=== PATIENT | female | born 1940 | race Hispanic/Latino ===

== ENCOUNTER 2016-06-25 07:22 | Emergency (ER) | payer MEDICARE, BC ==
[2016-06-25 07:24] VITALS: BMI 30.9
[2016-06-25 07:36] VITALS: TEMP 98.7
--- NOTE | 2016-06-25 07:47 | ED PDOC ---
Arrival/HPI - General Chief Complaint: Respiratory Distress Time Seen by Provider: 06/25/16 07:36 Historian: Patient - History of Present Illness Narrative History of Present Illness (Text): 06/25/16 07:47 A 75 year old female, whose past medical history includes hypertension, asthma and restrictive lung disease, was sent into the emergency department by rate quoting operator for asthma exacerbation. Patient reports wheezing and dry cough for the past 2 days. She was seen by Dr. Zuñiga and was prescribed steroids. Patient has been compliant with medication, with no relief. Patient denies any fever, chills, body aches, nausea, vomiting, diarrhea, abdominal pain, urinary symptoms, chest pain or tightness, shortness of breath, sore throat, nasal congestion, rash or any other complaints. Patient denies any recent travel or sick contact. PMD: Dr. Kennedy Edger Machine Operator: Dr. Zuñiga Time/Duration: Other (2 days) Symptom Course: Worsening Quality: Other Context: Home Past Medical History - Provider Review Nursing Documentation Reviewed: Yes - Infectious Disease Hx of Infectious Diseases: None - Reproductive Menopause: Yes - Cardiac Hx Hypertension: Yes - Pulmonary Hx Asthma: Yes - Psychiatric Hx Substance Use: No - Surgical History Hx Open Heart Surgery: Yes (70 years ago) Other/Comment: parathyroidectomy , hysterectomy , broken arm ( left arm - Anesthesia Hx Anesthesia: No Hx Anesthesia Reactions: No Hx Malignant Hyperthermia: No Family/Social History - Physician Review Nursing Documentation Reviewed: Yes Family/Social History: No Known Family HX Smoking Status: Never Smoked Hx Alcohol Use: No Hx Substance Use: No Allergies/Home Meds Allergies/Adverse Reactions: Allergies Sulfa (Sulfonamide Antibiotics) Allergy (Verified 02/16/16 18:54) RASH penecillin Allergy (Uncoded 02/16/16 18:53) RASH Home Medications: Home Meds Medication Instructions Recorded Confirmed Albuterol/Ipratropium [Combivent 2 puff IH QID 02/16/16 06/25/16 Respimat] Aliskiren [Tekturna] 300 mg PO DAILY 02/16/16 06/25/16 Atorvastatin [Lipitor] 20 mg PO DAILY 02/16/16 06/25/16 Raloxifene [Evista] 60 mg PO DAILY 02/16/16 06/25/16 Simvastatin [Zocor] 20 mg PO DAILY 02/16/16 06/25/16 Doxycycline Hyclate [Doryx] 100 mg PO BID 06/25/16 06/25/16 Mometasone Furoate [Asmanex] 2 puff INH HS 06/25/16 06/25/16 Review of Systems - Physician Review All systems were reviewed & negative as marked: Yes - Review of Systems Constitutional: absent: Fevers, Night Sweats ENT: absent: Sore Throat, Sinus Congestion Respiratory: Cough, Wheezing. absent: SOB, Sputum Cardiovascular: absent: Chest Pain Gastrointestinal: absent: Abdominal Pain, Diarrhea, Nausea, Vomiting Genitourinary Female: absent: Dysuria, Frequency, Hematuria, Urine Output Changes Musculoskeletal: absent: Myalgias Skin: absent: Rash Physical Exam Vital Signs Reviewed: Yes Vital Signs Temp Pulse Resp BP Pulse Ox 06/25/16 08:54 120 H 18 149/41 L 99 06/25/16 08:39 121 H 18 154/61 H 99 06/25/16 08:10 94 L 06/25/16 07:36 232/92 H 06/25/16 07:23 98.7 F 110 H 20 152/132 H 93 L Temperature: Afebrile Blood Pressure: Hypertensive Pulse: Tachycardic Respiratory Rate: Normal Appearance: Positive for: Well-Appearing, Non-Toxic, Comfortable Pain Distress: None Mental Status: Positive for: Alert and Oriented X 3 - Systems Exam Head: Present: Atraumatic, Normocephalic Pupils: Present: PERRL Extroacular Muscles: Present: EOMI Conjunctiva: Present: Normal Mouth: Present: Moist Mucous Membranes Pharnyx: No: Normal, ERYTHEMA, EXUDATE, TONSILS ENLARGED Neck: Present: Normal Range of Motion Respiratory/Chest: Present: Good Air Exchange, Wheezes (Wheezing in left lower lung field), Other (Normal respiratory rate). No: Respiratory Distress, Accessory Muscle Use, Tachypneic Cardiovascular: Present: Regular Rate and Rhythm, Normal S1, S2. No: Murmurs Abdomen: Present: Normal Bowel Sounds. No: Tenderness, Distention, Peritoneal Signs Back: Present: Normal Inspection Upper Extremity: Present: Normal Inspection. No: Cyanosis, Edema Lower Extremity: Present: Edema (Trace edema bilaterally), NORMAL PULSES. No: CALF TENDERNESS Neurological: Present: GCS=15, CN II-XII Intact, Speech Normal Skin: Present: Warm, Dry, Normal Color. No: Rashes Psychiatric: Present: Alert, Oriented x 3, Normal Insight, Normal Concentration Medical Decision Making ED Course and Treatment: 06/25/16 07:47 Impression: A 75 year old female with wheezing and dry cough. Denies chest pain or shortness of breath. Normal respiratory rate, wheezing in left lower lung field on exam. Differential Diagnosis included but are not limited to: Bronchitis vs. Asthma exacerbation, rule out PNA consider CHF cardiac Plan: -- Chest xray -- EKG -- Labs -- Blood culture -- Duoneb and Solumedrol -- Reassess and disposition Progress Notes: EKG shows sinus tachycardia at [address]-segment elevations, normal intervals. Interpreted by me. 06/25/16 08:34 Chest X-ray read and interpreted by me, which shows left lower lobe atelectasis , no infiltrates. 06/25/16 09:30 On re-examination, patient saturated well on room air, lungs clear. Dr. Zuñiga re-evaluated patient at bedside, he agreed with plan to discharge patient home. He recommended Prednisone leesa 10 mg and provided instructions to patient. Patient has Doxycycline Hyclate at home to continue antibiotic regimen. Patient feels better and is in no acute distress. I have discussed the results and plan with the patient, who expresses understanding. Patient in agreement with plan to be discharged home. Patient is stable for discharge. Patient was instructed to follow up with physician or return if symptoms worsen or new concerning symptoms arise. - Lab Interpretations Lab Results: 06/25/16 08:00 06/25/16 08:00 Lab Results 06/25/16 08:00: WBC 10.1, RBC 4.52, Hgb 14.2, Hct 40.4, MCV 89.4, MCH 31.4, MCHC 35.1, RDW 13.2, Plt Count 229, MPV 11.8 H, Gran % 75.9 H, Lymph % (Auto) 14.6 L, [place] % (Auto) 9.4 H, Eos % (Auto) 0.0 L, Baso % (Auto) 0.1, Gran # 7.64 H, Lymph # 1.5, [place] # 1.0 H, Eos # 0.0, Baso # 0.01, pO2 47, VBG pH 7.32, VBG pCO2 59.0, VBG HCO3 30.4 H, VBG Total CO2 32.2 H, VBG O2 Sat (Calc) 86.1 H, VBG Base Excess 2.8 H, VBG Potassium 3.9, Glucose 199 H, Lactate 2.4 H, FiO2 21.0, Sodium 138.0, Potassium 4.0, Chloride 103.0, Carbon Dioxide 30, Anion Gap 15, BUN 23 H, Creatinine 0.9, Est GFR ( Amer) > 60, Est GFR (Non-Af Amer) > 60, Random Glucose 190 H, Calcium 10.1, Lactate Dehydrogenase 431, Total Creatine Kinase 65, Troponin I 0.01, NT-Pro-B Natriuret Pep 124, Venous Blood Potassium 3.9 I have reviewed the lab results: Yes - RAD Interpretation Radiology Orders: 06/25/16 07:47 CHEST PORTABLE [RAD] Stat - Medication Orders Current Medication Orders: Discontinued Medications Albuterol/Ipratropium (Duoneb 3 Mg/0.5 Mg (3 Ml) Ud) 3 ml IH Q15M LUDMILA Stop: 06/25/16 08:31 Last Admin: 06/25/16 08:26 Dose: 3 ML Sodium Chloride (Sodium Chloride 0.9%) 1,000 mls @ 999 mls/hr IV .Q1H1M STA Stop: 06/25/16 10:05 Methylprednisolone (Solu-Medrol) 125 mg IVP STAT STA Stop: 06/25/16 07:47 Last Admin: 06/25/16 08:20 Dose: 125 MG IVP Administration Document 06/25/16 08:20 COLEEN (Rec: 06/25/16 08:26 COLEEN [id number]) Charges for Administration # of IVP Administrations 2 - Scribe Statement The provider has reviewed the documentation as recorded by the Scribandria Moura Provider Scribe Attestation: All medical record entries made by the Scribe were at my direction and personally dictated by me. I have reviewed the chart and agree that the record accurately reflects my personal performance of the history, physical exam, medical decision making, and the department course for this patient. I have also personally directed, reviewed, and agree with the discharge instructions and disposition. Disposition/Present on Arrival - Present on Arrival Any Indicators Present on Arrival: No History of DVT/PE: No History of Uncontrolled Diabetes: No Urinary Catheter: No History of Decub. Ulcer: No History Surgical Site Infection Following: None - Disposition Have Diagnosis and Disposition been Completed?: Yes Diagnosis: Asthma exacerbation Disposition: HOME/ ROUTINE Disposition Time: 09:30 Condition: IMPROVED Discharge Instructions (ExitCare): Asthma (DC) Additional Instructions: Ms Dumont, thank you for letting us take care of you today. Your provider was Dr. Rich. You were treated for Asthma Exaceration Reactive Airway Disease The emergency medical care you received today was directed at your acute symptoms. If you were prescribed any medication, please fill it and take as directed. It may take several days for your symptoms to resolve. Return to the Emergency Department if your symptoms worsen, do not improve, or if you have any other problems. Take Predisone as directed by Dr. Zuñiga. Please contact your doctor or call one of the physicians/clinics you have been referred to that are listed on the Patient Visit Information form that is included in your discharge packet. Bring any paperwork you were given at discharge with you along with any medications you are taking to your follow up visit. Our treatment cannot replace ongoing medical care by a primary care provider (PCP) outside of the emergency department. Thank you for allowing the [facility] team to be part of your care today. If you had an X-Ray or CT scan: A Radiologist will review the ED reading if any change in treatment is needed we will contact you. If you had a blood, urine, or wound culture: It will take several days for the results, if any change in treatment is needed we will contact you. If you had an STI test: It will take 48 hours for the results. Please call after 1 week if you have not heard back. Prescriptions: predniSONE [Prednisone] 10 mg PO DAILY #40 tab Referrals: Flip Zuñiga MD [Staff Provider] - Follow up with primary Leticia Kennedy MD [Primary Care Provider] - Follow up with primary Forms: WORK NOTE
[2016-06-25] MEDS: Albuterol-Ipratrop 3 mg / 0.5 (3 ml) UD IH SCH ×3 (08:00→08:26)
[2016-06-25 08:24] LABS: ADD MANUAL DIFF? NO
[2016-06-25 08:33] LABS: VENOUS BLOOD GAS BASE EXCESS 2.8 mmol/L (0.0-2.0); VENOUS BLOOD PH 7.32 (7.32-7.43)
[2016-06-25 08:34] LABS: BASO # 0.01 K/mm3 (0.0-2.0); BASO % 0.1 % (0.0-3.0); GRAN # 7.64 (1.4-6.5); GRAN % 75.9 % (50.0-68.0); HEMATOCRIT 40.4 % (36.0-48.0); LYMPH # 1.5 (1.2-3.4); LYMPH % 14.6 % (22.0-35.0); MEAN CELL VOLUME 89.4 fL (80.0-105.0); MEAN CORPUSCULAR HEMOGLOBIN 31.4 pg (25.0-35.0); MEAN CORPUSCULAR HGB CONC 35.1 g/dl (31.0-37.0); MEAN PLATELET VOLUME 11.8 fl (7.0-11.0); MONO % 9.4 % (1.0-6.0); PLATELET COUNT 229 10^3/uL (120.0-450.0); RED CELL DISTRIBUTION WIDTH 13.2 % (11.5-14.5); WHITE BLOOD COUNT 10.1 10^3/ul (4.5-11.0)
[2016-06-25 08:40] VITALS: RESP 18; O2SAT 99
[2016-06-25 08:46] LABS: BLOOD UREA NITROGEN 23 mg/dL (7-21); CALCIUM 10.1 mg/dL (8.4-10.5); CARBON DIOXIDE 30 mmol/L (21-33); CHLORIDE 97 mmol/L (98-107); GFR AFRICAN-AMERICAN > 60; GLUCOSE,RANDOM 190 mg/dL (70-110); SODIUM 138 mmol/L (132-148)
[2016-06-25 08:55] VITALS: BP 149/41; PULSE 120
[2016-06-25 09:01] LABS: TROPONIN I 0.01 ng/mL
[2016-06-25] MEDS ORDERED: Sodium Chloride 0.9% 1,000 ML IV STA (09:05)
--- NOTE | 2016-06-25 09:10 | RAD ---
HISTORY: cough r/o PNA COMPARISON: 02/17/2016 FINDINGS: LUNGS: Linear scar/ atelectasis at left base. No pulmonary infiltrate. PLEURA: No significant pleural effusion identified, no pneumothorax apparent. CARDIOVASCULAR: Normal. OSSEOUS STRUCTURES: No significant abnormalities. VISUALIZED UPPER ABDOMEN: Normal. OTHER FINDINGS: None. IMPRESSION: No active disease.
--- NOTE | 2016-06-26 11:09 | CARD ---
APPROVED REPORT EKG Measurement Heart [id number] <Conclusion> Sinus tachycardia Possible Left atrial enlargement Septal infarct, age undetermined LAD Mildly prolonged QTc
== END 2016-06-25 09:34 | disposition home or self-care (01) ==
LOC: ED 07:22
DX: J45.901 Unspecified asthma with (acute) exacerbation (principal); I10 Essential (primary) hypertension
CPT/HCPCS: 71010; 80048; 82550; 82803; 83615; 83880; 84484; 85025; 87040; 93005; 96374; 96376; 99284; J2930

== ENCOUNTER 2016-06-28 04:47 | Inpatient (IN) | payer MEDICARE, BC ==
[2016-06-28 04:49] VITALS: BMI 31.5
[2016-06-28] MEDS ORDERED: Albuterol-Ipratrop 3 mg / 0.5 (3 ml) UD ONE (05:05)
[2016-06-28] MEDS: Albuterol-Ipratrop 3 mg / 0.5 (3 ml) UD IH SCH ×5 (05:10→19:30)
--- NOTE | 2016-06-28 05:12 | ED PDOC ---
Arrival/HPI - General Chief Complaint: Respiratory Distress Time Seen by Provider: 06/28/16 04:49 Historian: Patient - History of Present Illness Narrative History of Present Illness (Text): 06/28/16 05:12 Emilie Dumont is a 75 year old female, with a history of hypertension, asthma , and restrictive lung disease, presents to the emergency department for evaluation of shortness of breath and wheezing. States she gets relief for 2 hours after using nebulizer treatments. Also reports of a productive cough and slight headache. Patient was evaluated at emergency department on 06/25/2016 for similar symptoms and was discharged home on Prednisone taper dosage and doxycycline. Denies fever, chills, dizziness, chest pain, abdominal pain, nausea , vomiting, diarrhea, urinary symptoms or any other complaints at this time. Time/Duration: 1-3 hours Symptom Onset: Gradual Symptom Course: Unchanged Severity Level: Mild Activities at Onset: Light Context: Home Past Medical History - Provider Review Nursing Documentation Reviewed: Yes - Infectious Disease Hx of Infectious Diseases: None - Cardiac Hx Hypertension: Yes - Pulmonary Hx Asthma: Yes - Psychiatric Hx Substance Use: No - Surgical History Hx Open Heart Surgery: Yes (70 years ago) Other/Comment: parathyroidectomy , hysterectomy , broken arm ( left arm - Anesthesia Hx Anesthesia: No Hx Anesthesia Reactions: No Hx Malignant Hyperthermia: No Family/Social History - Physician Review Nursing Documentation Reviewed: Yes Family/Social History: No Known Family HX Smoking Status: Never Smoked Hx Alcohol Use: No Hx Substance Use: No Allergies/Home Meds Allergies/Adverse Reactions: Allergies Penicillins Allergy (Verified 06/28/16 04:50) RASH Sulfa (Sulfonamide Antibiotics) Allergy (Verified 06/28/16 04:50) RASH Home Medications: Home Meds Medication Instructions Recorded Confirmed Albuterol/Ipratropium [Combivent 2 puff IH QID 02/16/16 06/28/16 Respimat] Aliskiren [Tekturna] 300 mg PO DAILY 02/16/16 06/28/16 Raloxifene [Evista] 60 mg PO DAILY 02/16/16 06/28/16 Simvastatin [Zocor] 20 mg PO DAILY 02/16/16 06/28/16 Doxycycline Hyclate [Doryx] 100 mg PO BID 06/25/16 06/28/16 Mometasone Furoate [Asmanex] 2 puff INH HS 06/25/16 06/28/16 Review of Systems - Physician Review All systems were reviewed & negative as marked: Yes - Review of Systems Constitutional: Normal. absent: Fatigue, Fevers Respiratory: SOB, Cough, Sputum Cardiovascular: absent: Chest Pain Gastrointestinal: absent: Abdominal Pain, Diarrhea, Nausea, Vomiting Neurological: Headache. absent: Dizziness Psychiatric: Normal Physical Exam Vital Signs Reviewed: Yes Vital Signs Temp Pulse Resp BP Pulse Ox 06/28/16 08:36 86 16 160/66 H 96 06/28/16 07:12 93 H 16 150/62 96 06/28/16 06:42 97 H 18 143/80 95 06/28/16 05:00 98.1 F 98 H 20 166/77 H 93 L Temperature: Afebrile Blood Pressure: Hypertensive Pulse: Tachycardic Respiratory Rate: Normal Appearance: Positive for: Well-Appearing, Non-Toxic, Comfortable Pain Distress: None Mental Status: Positive for: Alert and Oriented X 3 - Systems Exam Head: Present: Atraumatic, Normocephalic Pupils: Present: PERRL Conjunctiva: Present: Normal Respiratory/Chest: Present: Wheezes. No: Respiratory Distress, Accessory Muscle Use Cardiovascular: Present: Regular Rate and Rhythm, Normal S1, S2. No: Murmurs Neurological: Present: GCS=15, CN II-XII Intact, Speech Normal, Motor Func Grossly Intact, Normal Sensory Function Skin: Present: Warm, Dry, Normal Color. No: Rashes Psychiatric: Present: Alert, Oriented x 3, Normal Insight, Normal Concentration Medical Decision Making ED Course and Treatment: Progress Notes: EKG interpreted by me: NSR @ 99 bpm. Normal Epsom. Normal interval. No acute ischemia. Disc w Dr Kennedy who will admit. - Lab Interpretations Lab Results: 06/28/16 05:25 06/28/16 05:25 Lab Results 06/28/16 05:25: WBC 9.2, RBC 4.69, Hgb 14.8, Hct 41.9, MCV 89.3, MCH 31.6, MCHC 35.3, RDW 13.3, Plt Count 223, MPV 11.3 H, Gran % 79.5 H, Lymph % (Auto) 15.4 L , [place] % (Auto) 5.0, Eos % (Auto) 0.0 L, Baso % (Auto) 0.1, Gran # 7.31 H, Lymph # 1.4, [place] # 0.5, Eos # 0.0, Baso # 0.01, Sodium 135, Potassium 5.0, Chloride 92 L, Carbon Dioxide 32, Anion Gap 16, BUN 29 H, Creatinine 0.9, Est GFR ( Amer) > 60, Est GFR (Non-Af Amer) > 60, Random Glucose 295 H, Calcium 10.6 H, Total Bilirubin 0.5, AST 42 H, ALT 57 H, Alkaline Phosphatase 109, Troponin I < 0.01, NT-Pro-B Natriuret Pep 50.2, Total Protein 8.1, Albumin 4.1, Globulin 4.0, Albumin/Globulin Ratio 1.0 L I have reviewed the lab results: Yes - RAD Interpretation Radiology Orders: 06/28/16 05:02 CHEST PORTABLE [RAD] Stat Craft Coordinator: Radiologist - EKG Interpretation Interpreted by ED Physician: Yes Type: 12 lead EKG - Medication Orders Current Medication Orders: Discontinued Medications Acetaminophen (Tylenol 325mg Tab) 650 mg PO Q6H PRN PRN Reason: Fever >100.4 F Albuterol Sulfate (Albuterol 0.083% Inhal Ivonne (2.5 Mg/3 Ml) Ud) 2.5 mg IH Q2H PRN PRN Reason: Wheezing Albuterol/Ipratropium (Duoneb 3 Mg/0.5 Mg (3 Ml) Ud) 3 ml IH Q15M LUDMILA Stop: 06/28/16 05:46 Last Admin: 06/28/16 05:51 Dose: 3 ML Albuterol/Ipratropium (Duoneb 3 Mg/0.5 Mg (3 Ml) Ud) Confirm Administered Dose 3 ml .ROUTE .STK-MED ONE Stop: 06/28/16 05:06 Last Admin: 06/28/16 06:48 Dose: Not Given Non-Admin Reason: Patient Refused Albuterol/Ipratropium (Duoneb 3 Mg/0.5 Mg (3 Ml) Ud) 3 ml INH [id number] LUDMILA Albuterol/Ipratropium (Duoneb 3 Mg/0.5 Mg (3 Ml) Ud) 3 ml INH [id number] LUDMILA Albuterol/Ipratropium (Duoneb 3 Mg/0.5 Mg (3 Ml) Ud) 3 ml IH Q2H PRN PRN Reason: Shortness of Breath Last Admin: 06/28/16 11:03 Dose: 3 ML Albuterol/Ipratropium (Duoneb 3 Mg/0.5 Mg (3 Ml) Ud) 3 ml IH [id number] [facility] Last Admin: 06/29/16 07:51 Dose: 3 ML Albuterol/Ipratropium (Duoneb 3 Mg/0.5 Mg (3 Ml) Ud) 3 ml IH [id number] [facility] Last Admin: 06/30/16 11:51 Dose: 3 ML Aspirin (Aspirin Chewable) 81 mg PO DAILY [facility] Last Admin: 06/30/16 09:36 Dose: 81 MG Atorvastatin Calcium (Lipitor) 10 mg PO DAILY [facility] Last Admin: 06/28/16 10:28 Dose: 10 MG Diphenhydramine HCl (Benadryl) 25 mg PO HS PRN PRN Reason: Insomnia Home Med (Home Med) 1 unit PO DAILY LUDMILA Home Med (Home Med) 1 unit PO DAILY LUDMILA Home Med (Home Med) 1 unit PO HS [facility] Last Admin: 06/29/16 22:03 Dose: 1 UNIT Home Med (Home Med) 1 unit PO DAILY [facility] Last Admin: 06/30/16 09:38 Dose: 1 UNIT Magnesium Sulfate 2 gm/ Sodium (Chloride) 104 mls @ 102 mls/hr IVPB ONCE ONE Stop: 06/28/16 06:04 Last Admin: 06/28/16 05:32 Dose: 102 MLS/HR eMAR Start Stop Document 06/28/16 05:32 MIGUEL (Rec: 06/28/16 05:33 MIGUEL [id number]) Intravenous Solution Start Date 06/28/16 Start Time 05:33 Ceftriaxone Sodium (Rocephin 1 Gram Ivpb) 100 mls @ 100 mls/hr IVPB DAILY [facility] PRN Reason: Protocol Last Admin: 06/28/16 10:28 Dose: 100 MLS/HR eMAR Start Stop Document 06/28/16 10:28 MLK (Rec: 06/28/16 10:28 MLK [id number]) Intravenous Solution Start Date 06/28/16 Start Time 10:28 End Date 06/28/16 End time 11:28 Total Infusion Time 60 Levofloxacin/Dextrose (Levaquin 500mg) 100 mls @ 100 mls/hr IVPB DAILY [facility] Last Admin: 06/28/16 13:28 Dose: 100 MLS/HR eMAR Start Stop Document 06/28/16 13:28 MLK (Rec: 06/28/16 13:28 [email or web address] [email or web address]) Intravenous Solution Start Date 06/28/16 Start Time 13:28 End Date 06/28/16 End time 14:28 Total Infusion Time 60 Levofloxacin/Dextrose (Levaquin 250mg) 50 mls @ 50 mls/hr IVPB DAILY LUDMILA Last Admin: 06/30/16 09:34 Dose: 50 MLS/HR eMAR Start Stop Document 06/30/16 09:34 VAN (Rec: 06/30/16 09:36 [email or web address] [email or web address]) Intravenous Solution Start Date 06/30/16 Start Time 09:34 End Date 06/30/16 End time 10:34 Total Infusion Time 60 Methylprednisolone (Solu-Medrol) 125 mg IVP STAT STA Stop: 06/28/16 05:03 Last Admin: 06/28/16 05:32 Dose: 125 MG IVP Administration Document 06/28/16 05:32 MIGUEL (Rec: 06/28/16 05:32 MIGUEL [id number]) Charges for Administration # of IVP Administrations 1 Methylprednisolone (Solu-Medrol) 40 mg IVP Q8 [facility] Methylprednisolone (Solu-Medrol) 40 mg IVP Q12 [facility] Last Admin: 06/30/16 09:36 Dose: 40 MG IVP Administration Document 06/30/16 09:36 VAN (Rec: 06/30/16 09:36 [email or web address] [email or web address]) Charges for Administration # of IVP Administrations 1 Mometasone Furoate (Asmanex [place] 220 Mcg) 2 puff IH QPM [facility] Last Admin: 06/29/16 21:59 Dose: 2 PUFF Montelukast Sodium (Singulair) 10 mg PO HS [facility] Last Admin: 06/29/16 22:03 Dose: 10 MG Pantoprazole Sodium (Protonix Ec Tab) 40 mg PO 0630 [facility] Last Admin: 06/30/16 06:30 Dose: 40 MG Polyethylene Glycol (Miralax) 17 gm PO DAILY [facility] Last Admin: 06/30/16 09:36 Dose: 17 GM Promethazine HCl/Codeine (Phenergan/Codeine Oral Syrup) 5 ml PO Q4H PRN PRN Reason: Cough and congestion Last Admin: 06/29/16 22:14 Dose: 5 ML Tiotropium [place] (Spiriva) 18 mcg IH DAILY LUDMILA Last Admin: 06/30/16 09:36 Dose: 18 MCG - Scribe Statement The provider has reviewed the documentation as recorded by the Abdirashid Garay Provider Attestation: All medical record entries made by the Abdirashid were at my direction and personally dictated by me. I have reviewed the chart and agree that the record accurately reflects my personal performance of the history, physical exam, medical decision making, and the department course for this patient. I have also personally directed, reviewed, and agree with the discharge instructions and disposition. Disposition/Present on Arrival - Present on Arrival Any Indicators Present on Arrival: No History of DVT/PE: No History of Uncontrolled Diabetes: No Urinary Catheter: No History of Decub. Ulcer: No History Surgical Site Infection Following: None - Disposition Have Diagnosis and Disposition been Completed?: Yes Diagnosis: Asthma exacerbation Disposition: HOSPITALIZED Disposition Time: 05:55 Condition: STABLE
[2016-06-28] MEDS: Magnesium Sulfate 2 GM in Sodium Chloride 0.9% 100 ML IVPB ONE ×2 (05:32→09:27)
[2016-06-28 05:34] LABS: ADD MANUAL DIFF? NO
[2016-06-28 05:36] LABS: BASO # 0.01 K/mm3 (0.0-2.0); BASO % 0.1 % (0.0-3.0); GRAN # 7.31 (1.4-6.5); GRAN % 79.5 % (50.0-68.0); HEMATOCRIT 41.9 % (36.0-48.0); LYMPH # 1.4 (1.2-3.4); LYMPH % 15.4 % (22.0-35.0); MEAN CELL VOLUME 89.3 fL (80.0-105.0); MEAN CORPUSCULAR HEMOGLOBIN 31.6 pg (25.0-35.0); MEAN CORPUSCULAR HGB CONC 35.3 g/dl (31.0-37.0); MEAN PLATELET VOLUME 11.3 fl (7.0-11.0); MONO # 0.5 (0.1-0.6); PLATELET COUNT 223 10^3/uL (120.0-450.0); RED CELL DISTRIBUTION WIDTH 13.3 % (11.5-14.5); WHITE BLOOD COUNT 9.2 10^3/ul (4.5-11.0)
[2016-06-28 05:46] LABS: ALKALINE PHOSPHATASE 109 U/L (38-133); ALT/SGPT 57 U/L (7-56); AST/SGOT 42 U/L (15-39); BILIRUBIN,TOTAL 0.5 mg/dL (0.2-1.3); BLOOD UREA NITROGEN 29 mg/dL (7-21); CALCIUM 10.6 mg/dL (8.4-10.5); CARBON DIOXIDE 32 mmol/L (21-33); CHLORIDE 92 mmol/L (98-107); GFR AFRICAN-AMERICAN > 60; GLUCOSE,RANDOM 295 mg/dL (70-110); SODIUM 135 mmol/L (132-148); TOTAL PROTEIN 8.1 g/dL (5.8-8.3)
[2016-06-28] MEDS ORDERED: Albuterol 0.083% Inhal Sol (2.5 mg/3 mL) UD IH PRN (05:55)
[2016-06-28 06:08] LABS: TROPONIN I < 0.01 ng/mL
[2016-06-28] MEDS ORDERED: Albuterol-Ipratrop 3 mg / 0.5 (3 ml) UD INH SCH ×2 (07:30→08:00)
--- NOTE | 2016-06-28 07:52 | RAD ---
HISTORY: sob COMPARISON: Comparison made with prior study 06/25/2016. FINDINGS: LUNGS: Persistent minor curvilinear atelectasis and or scarring both lung bases. PLEURA: No significant pleural effusion identified, no pneumothorax apparent. CARDIOVASCULAR: Mild cardiomegaly. OSSEOUS STRUCTURES: No significant abnormalities. VISUALIZED UPPER ABDOMEN: Normal. OTHER FINDINGS: None. IMPRESSION: Persistent minor curvilinear atelectasis and or scarring both lung bases
[2016-06-28] MEDS: MethylPREDNISolone 40 mg Vial IVP SCH ×2 (09:34→21:15)
[2016-06-28] MEDS ORDERED: Albuterol-Ipratrop 3 mg / 0.5 (3 ml) UD IH PRN (09:45)
--- NOTE | 2016-06-28 09:53 | CON ---
DATE: 06/28/2016 PULMONARY CONSULTATION LOCATION: Room 368, bed 1. HISTORY: The patient was having progressive shortness of breath over the last week. She attributes this to esposito being delivered to her home for the holidays. She had progressive cough and some wheezing. She was seen in the Emergency Room Tuesday by my associate, Dr. Zuñiga. She was given antibiotics. This did not improve her clinical situation, and in fact, it worsened over the last several days. She took her inhalation treatments at home to no avail. She came to the Emergency Room for further evaluation and treatment. She complained of cough and wheezing, headache with the cough. No fever, chills expectoration. No chest pain or any other symptoms at this time. PAST MEDICAL HISTORY: The patient has a past history of hypertension, asthma, restrictive lung disease, and it is my impression that she had been developing progressive emphysema over time. Her past medical history as described above. No additional history obtained. FAMILY HISTORY: No known history that is relevant to her case. SOCIAL HISTORY: She is a nonsmoker, has never smoked, worked in the [employer] in [place], [place], had no drug abuse or alcohol abuse. ALLERGIES: PENICILLIN AND SULFA. HOME MEDICATIONS: Include Combivent and Asmanex in addition to aliskiren, Lipitor, and Zocor. She was recently started on Doryx by Dr. Zuñiga. REVIEW OF SYSTEMS: Complete review of systems has been discussed with the patient. Dyspnea on exertion. Pt with cough and wheeze. Pt denies any abdominal pains, vomiting, urinary frequency, skin rashes or memory loss. All other systems negative. PHYSICAL EXAMINATION: GENERAL: She is resting comfortably with an occasional cough. She has no fever. VITAL SIGNS: Temperature is 98.4, pulse rate 80, respiratory rate 16, blood pressure 140/70, O2 sat 98% on supplemental oxygen. HEENT: Normocephalic, atraumatic. EYES: Pupils are PERRLA, EOMs full. Conjunctivae are pink. CARDIOVASCULAR: Regular rhythm, S1, S2 without murmur, gallop, or rub. LUNGS: Minimal scattered wheezes throughout both lung [place]. No rales or rhonchi noted. Prolonged expiratory phase. ABDOMEN: Soft, bowel sounds normoactive without mass, guarding, rebound, or organomegaly. EXTREMITIES: Reveal no clubbing, cyanosis, or edema. There is no Homans' sign. SKIN: Shows no rash or excoriation. LYMPHATICS: Lymph nodes are not present. There are no lymph nodes palpated in the supraclavicular notch nor in the cervical, inguinal, or axillary areas. NEUROLOGIC: Shows no focality. Mental status normal. Motor, sensory, and coordination normal. Babinski downgoing. Deep tendon reflexes are normal throughout. Chest x-ray shows abnormalities such as atelectasis and scarring. Old x-rays need to be reviewed to compare these problems. LABORATORY STUDIES: Show the following: White count 9000, hemoglobin 14, platelet count 223. EOs 0. Chemistries showed a sodium of 135, potassium 5, chloride 92, BUN 29, creatinine 0.9. LFTs are slightly elevated. AST/ALT 42/ 57. CLINICAL IMPRESSION: 1. Asthma. 2. Development of emphysema with air-trapping. 3. Elevated liver function studies. 4. MULTIPLE ALLERGIES WITH POOR REACTION TO WEATHER CHANGES, FLOWER SMELLS, ETC. PLAN: Would give the patient a course of corticosteroids, taper to p.o., and discharge as soon as possible. The patient can be given a double Medrol Dosepak over the course of the next 12 days. I would suggest in the exterminator helper that the patient be taken off Combivent and be given a LABA/LAMA combination therapy such as Anoro or Bevespi. This will help with air-trapping. This can certainly be confirmed by pulmonary function study prior to initiating this therapy. The patient has been told to call our office immediately if problems persist or return. Dr. Zuñiga will be away for another week. She is free to call me at any time for further questions or intervention as required. Thank you for the opportunity to see this patient. Tony Pino MD cc: [id number] TT: 06/28/2016 09:53:05 Confirmation # [id number] Dictation # [id number] jn ALEXANDRA
[2016-06-28] MEDS ORDERED: cefTRIAXone 1 gm 100 ML IVPB SCH ×2 (10:00)
--- NOTE | 2016-06-28 10:13 | CARD ---
APPROVED REPORT EKG Measurement Heart [id number] <Conclusion> Normal sinus rhythm Septal infarct, age undetermined Abnormal ECG
[2016-06-28] MEDS ORDERED: MethylPREDNISolone 40 mg Vial IVP SCH (14:00)
--- NOTE | 2016-06-28 15:27 | HP ---
The patient is a 75-year-old. She states on Tuesday, she started to have some cough and congestion wi th shortness of breath. They know Dr. Zuñiga personally, so he asked her to come to Emergency Room where he gave a couple of nebulizer treatments and gave Medrol Dosepak and doxycycline. The patient states somebody gave her esposito on . Initially she felt better, but after she received the fl owers, probably she got allergic to some of the esposito and her shortness of breath got worse and in the middle of night, she was unable to catch her breath, so she told her to bring her to [facility] Room. Denies any fever or chills. No nausea or vomiting. No hemoptysis, no hematemesis. PAST MEDICAL HISTORY: Significant for: 1. Hypertension. 2. Hyperlipidemia. 3. History of asthma. PAST SURGICAL HISTORY: Significant for: 1. Left wrist fracture. 2. Status post tonsillectomy. 3. History of left breast lumpectomy. 4. She also had patent ductus arteriosus surgery in [place]. 5. Parathyroidectomy 6. Status post hysterectomy. ALLERGIES: SHE IS ALLERGIC TO PENICILLIN AND SULFA. SOCIAL HISTORY: She is , lives with her , used to smoke in remote past when teenager, only once or twice, but not heavy smoker. REVIEW OF SYSTEMS: Significant for cough, congestion, shortness of breath. PHYSICAL EXAMINATION: GENERAL: The patient is awake and alert, communicative. VITAL SIGNS: She is afebrile, pulse 96, respirations 16, blood pressure 148/75. LUNGS: Bilateral few expiratory rhonchi. HEART: S1, S2 audible. ABDOMEN: Soft, nontender, no rebound, no guarding. NEUROLOGIC: The patient is awake and alert, communicative. Moves all extremities. LABORATORY EXAMINATION: WBCs 9.2, hemoglobin 14.8, hematocrit 41.9, platelets 223. Chemistry: Sodi um 135, potassium 5.0, chloride 92, CO2 32, BUN 29, creatinine 0.9, blood sugar of 295, calcium 10.6, AST 42, ALT 57. ASSESSMENT: 1. Asthma exacerbation. 2. Hypertension. 3. Hyperlipidemia. 4. Asthmatic bronchitis. 5. Bronchospasm. PLAN: The patient is ALLERGIC TO PENICILLIN. We will discontinue Rocephin that was started earlier. I will start her on Levaquin. Continue her on nebulizer treatment and I will resume her usual medi cation she takes at home, and I will reevaluate patient in a.m. Leticia Kennedy MD cc: [id number] TT: 06/28/2016 15:26:25 en
[2016-06-29] MEDS: Albuterol-Ipratrop 3 mg / 0.5 (3 ml) UD IH SCH ×4 (02:42→19:23)
[2016-06-29] MEDS: Pantoprazole 40 mg EC Tab PO SCH (06:17)
[2016-06-29] MEDS ORDERED: Promethazine/Cod 6.25mg-10mg/5ml Syr UD PO PRN (09:02)
[2016-06-29] MEDS: Tiotropium 18 mcg Cap For Inhalation IH SCH ×2 (09:41→11:03)
[2016-06-29] MEDS: MethylPREDNISolone 40 mg Vial IVP SCH ×2 (09:48→22:04)
[2016-06-29] MEDS ORDERED: TEKTURNA 300 MG PO SCH ×2 (10:00→15:14)
[2016-06-29] MEDS ORDERED: Home Med 1 UNIT PO SCH (10:00)
--- NOTE | 2016-06-29 10:20 | PN ---
DATE: 06/29/2016 PULMONARY PROGRESS NOTE HISTORY: The patient is no longer short of breath since admission. She does have a persistent cough . However, this is nonproductive. Wheezing has abated. The patient is feeling better, but the coug h is still disconcerting. It is gratifying to see that the shortness of breath and wheezing have res olved, but the patient does not seem comfortable being discharged with this significant cough. PAST HISTORY: As described yesterday, hypertension, restrictive lung disease, abnormal chest x-ray. PHYSICAL EXAMINATION: VITAL SIGNS: Stable with a blood pressure of 127/87, heart rate 80, respiratory rate 16, oxygen sat 99% on room air. HEENT: Normocephalic, atraumatic. Eyes: PERRLA. EOMs full. Conjunctivae pink. CARDIOVASCULAR: Regular rhythm. S1, S2 without murmur, gallop, or rub. LUNGS: Cough is persistent. There are no wheezes noted today. No rhonchi are noted. There is a pr olonged expiratory phase that persists. ABDOMEN: Soft. Bowel sounds are normoactive without mass, guarding, rebound or, organomegaly. EXTREMITIES: Reveal no clubbing, cyanosis, or edema. There is no Homans' sign. SKIN: Shows no abnormalities. There is no rash or excoriation. LYMPHATICS: Lymphadenopathy is not present. There are no lymph nodes palpated in the supraclavicula r notch Nor in the cervical, axillary, or inguinal areas. NEUROLOGIC: Normal. LABORATORY DATA: No new laboratory studies have been noted. CLINICAL IMPRESSION: 1. Cough (persistent). 2. Resolving asthma. 3. Development of emphysema with significant air-trapping. 4. Possible multiple allergies, as described by the patient. PLAN: Future allergy-testing must be considered. A repeat pulmonary function must be considered. T he cough is problematic. We will add an antitussive, as well as beginning LAMA at this time. The lauren rocio would like to have some relief prior to discharge. She would be seen next week by Dr. Zuñiga, her celebrity manager. I stand ready and will be available to see her at any time before he returns fro vacation. Followup pulmonary function is done. Followup x-ray or comparison to previous films to make sure that abnormalities are stable and not new. Old films cannot be located here in this hospit al computer. We will follow closely with you and decide on the need for further intervention based on clinical res ponse. DISCHARGE MEDICATION: Should include ProAir 4 times a day, Spiriva Respimat 2 puffs daily, and the A smanex 220 mcg 2 puffs at bedtime, a tapering dose of oral corticosteroids as necessary. I would use a double dosepak, starting with 6 mg of Medrol 4 mg twice a day, followed by 5 tablets twice a day, and tapered as discussed. We will be happy to see her in the interim if it is necessary. Thank you for this consultation. Tony Pino MD cc: [id number] TT: 06/29/2016 09:16:39 Confirmation # [id number] Dictation # [id number] 06/29/2016 09:18:36
--- NOTE | 2016-06-29 12:57 | PN ---
DATE: 06/29/2016 SUBJECTIVE: The patient is a 75-year-old seen and examined. She states she is feeling a lot better, less cough and congestion, less wheezing, unable to sleep last night. PHYSICAL EXAMINATION: VITAL SIGNS: Afebrile, pulse 91, respirations 20, blood pressure 132/60. LUNGS: Bilateral expiratory rhonchi. HEART: S1, S2 audible. ABDOMEN: Soft, nontender, no rebound, no guarding. NEUROLOGIC: The patient is awake and alert, communicative. She is ambulatory. EXTREMITIES: Bilateral legs, no edema. ASSESSMENT: 1. Chronic obstructive pulmonary disease exacerbation. 2. Asthmatic bronchitis. 3. Allergic pharyngitis and rhinitis. 4. Hypertension. 5. Hyperlipidemia. PLAN: We will continue patient on aspirin 81 daily. She is on Asmanex from home. She is on Tekturn a, continue her on Lovenox. Will give a dose of MiraLax since she is complaining of constipation. C ontinue her on Spiriva. We will cut down her steroids from 40 to 30 q. 12 in a.m. and if she will be reevaluated in a.m. If she is stable, we will be discharging home. Leticia Kennedy MD cc: [phone] TT: 06/29/2016 12:56:12 Confirmation # [id number] Dictation # [id number] an
[2016-06-29] MEDS: POLYETHYLENE GLYCOL 3350 17 GM/Dose PACKET PO SCH (15:05)
--- NOTE | 2016-06-29 15:06 | IP.NPCORE ---
COPD Progress Note - COPD Progress Note Plan to assess at outpatient follow up: Yes Symptoms:: Increase in Dyspnea, Cough Initial CXR:: persistent atelectasis,scarring both bases Date:: 06/28/16 Oxygen Saturation/Pulse Oximetry:: 95 Nebulizers Q2-4 hrs:: Duonebs/Albuterol Therapy Antibiotics (Name/Dose/Frequency):: Levaquin IV 250 mg daily
[2016-06-29] MEDS: Mometasone 220 mcg/puff-14 puff Inh IH SCH ×2 (17:30→21:59)
[2016-06-29] MEDS ORDERED: ZOCOR 20 MG PO SCH (22:00)
[2016-06-30] MEDS: Albuterol-Ipratrop 3 mg / 0.5 (3 ml) UD IH SCH ×3 (01:22→11:51)
[2016-06-30] MEDS: Pantoprazole 40 mg EC Tab PO SCH (06:30)
[2016-06-30] MEDS: MethylPREDNISolone 40 mg Vial IVP SCH (09:36)
[2016-06-30] MEDS: POLYETHYLENE GLYCOL 3350 17 GM/Dose PACKET PO SCH (09:36)
[2016-06-30] MEDS: Tiotropium 18 mcg Cap For Inhalation IH SCH (09:36)
[2016-06-30 10:19] VITALS: BP 144/63; PULSE 89; RESP 20; TEMP 97.9; O2SAT 93
--- NOTE | 2016-06-30 14:10 | DS ---
The patient is a 75-year-old seen and examined, lying in bed, comfortable. She still has cough, but no shortness of breath. PHYSICAL EXAMINATION: VITAL SIGNS: She is afebrile, pulse 89, respirations 20, blood pressure 144/63. LUNGS: Bilateral few expiratory rhonchi. She has decreased breath sounds. HEART: S1, S2 audible. ABDOMEN: Soft, nontender, no rebound, no guarding. NEUROLOGIC: She is awake and alert, communicative, ambulatory. LABORATORY EXAM: There is no new lab available today. ASSESSMENT AND PLAN: 1. Chronic obstructive pulmonary disease exacerbation. 2. Asthmatic bronchitis. 3. Hypertension. 4. Hyperlipidemia. 5. Failed outpatient treatment. PLAN: The patient is being discharged home on Levaquin 500 daily. She is on Medrol Dosepak. She wi ll continue ProAir 2 puffs q.i.d. She is using Asmanex at bedtime and DuoNeb as needed has been reque sted. We will give her antitussive as needed. I will follow up the patient in office next . Leticia Kennedy MD cc: [id number] TT: 06/30/2016 14:09:40
== END 2016-06-30 12:54 | disposition home or self-care (01) | DRG 191 ==
LOC: ED 04:47 → ERH 05:55 → 3RNO 08:39 → OBSVTOIN 06-29 14:35
PROVIDERS: ADMIT Internal Medicine; ATTEND Internal Medicine
DX: J44.1 Chronic obstructive pulmonary disease with (acute) exacerbation (principal); J45.901 Unspecified asthma with (acute) exacerbation; J02.9 Acute pharyngitis, unspecified; I10 Essential (primary) hypertension; E78.5 Hyperlipidemia, unspecified; Z88.0 Allergy status to penicillin; Z88.2 Allergy status to sulfonamides; Z87.74 Personal history of (corrected) congenital malformations of heart and circulatory system